=== PATIENT | male | born 1980 | race Caucasian/White ===

== ENCOUNTER 2025-04-01 10:46 | Outpatient (CLI) | payer OTHER, SELFPAY ==
[2025-04-14 10:55] VITALS: BMI 47.5
--- NOTE | 2025-04-14 10:55 | P.SLEEP_ITS ---
Sleep Study - Home Unattended Date of Study: 04/01/25 Ordering Provider: Nadeem Alicia, Interpreting Provider: Eva Reyes, DO Home Sleep Study Type: Watch PAT Height: 1.83 m Weight: 158.757 kg Body Mass Index: 47.5 Neck Circumference (inches): [address] [place] [address] [place]: 4 Reason for Sleep Study daytime hypersomnia Sleep History The patient is a 44-year-old male who had a sleep study ordered by his primary care for evaluation of sleep apnea. The patient denies snoring loudly. He denies interruptions in breathing while asleep. He denies choking or gasping at night. He denies having trouble breathing on his back. He denies morning headaches. He denies having a dry or sore mouth/throat in the morning. He does have nocturnal heartburn. He denies nocturia. He denies having trouble falling or staying asleep. He does have difficulty returning to sleep if he wakes up throughout the night. He denies any hypnotic or sedative use. He denies feeling anxious about sleep. He does feel tired or sleepy during the day. He denies feeling tired in the morning. He denies having the urge to fall asleep during the day. He denies feeling drowsy while driving. He denies sleep paralysis, cataplexy, and hypnagogic/hypnopompic hallucinations. He denies clenching or grinding his teeth. He denies kicking or jerking his legs excessively. He denies having a restless feeling in his legs. He goes to bed at 10 p.m. every night. It takes him 15 minutes to fall asleep. He gets 6 hours of sleep on workdays and 10 hours on his days off. His sleep is somewhat restorative on his days off. He does take a planned nap in the after noon for 1-2 hours and it is restorative. He denies dream enactment behavior. He denies sleepwalking. He consumes 1-2 cups of caffeinated beverage per day. He denies tobacco and alcohol use. He denies exercising on a regular basis. Sleep Procedure The sleep study was completed using [employer] a technically adequate device with seven channels: peripheral arterial tone, actigraphy, body position, snore, respiratory movement, pulse oximetry, sleep staging, and heart rate. Prior to using the device, the patient received verbal and written instructions for its application and was provided with the help desk phone number for additional telephonic instruction with 24-hour availability of qualified personnel to answer questions. The study was scored using CMS guidelines. Sleep Architecture The total recording time is 6 hrs, 48 min. The total sleep time is 6 hrs, 3 min. Sleep latency is 20 minutes. REM latency is 94 minutes. The patient had 3 episodes of waking. Sleep architecture shows 18.3% deep sleep, 56.7% light sleep, and (as % Total Sleep Time) showed NREM (Light 56.7%; Deep 18.3%), and a 25.0% stage REM. The patient spent 74.7% of total sleep time in the supine position. Sleep efficiency was 88.97. Respiratory Analysis The overall AHI (pAHI 4%:) is 11.4. The overall AHI (pAHI 3%:) is 22.0. The central AHI is 0.0. The AHI was 13.3 in NREM and 47.4 in REM sleep. The AHI was 26.2 in Supine and 8.1 in Non-supine sleep. Percent of [place] respirations is 0.0. Oximetry Data The oxygen desaturation index (MATTHEW 4%:) is 11.4. The mean saturation is 93%, and the lowest saturation is 79%. Time spent with saturation < 88% is 3.1 minutes. Snoring Profile Snoring average intensity is 41 dB. The patient snored above 45 decibels for 8.2 minutes, 2.3% of sleep time. Cardiac Profile The average pulse rate is 79 beats per minutes. The lowest pulse rate is 63 bpm. The highest pulse rate reported is 107 bpm. Atrial fibrillation was not detected. Premature beats occur <0.1 per minute. Assessment and Plan Assessment and Plan (1) MADHAVI (obstructive sleep apnea): Code(s): G47.33 - Obstructive sleep apnea (adult) (pediatric) Status: Acute Assessment and Plan: The patient had an overall AHI of 11.4 with desaturation down to 79%. This is consistent with mild sleep apnea. Due to the patient's hypersomnia and morbid obesity, he qualifies for treatment. I recommend that the patient be prescribed AutoPAP 5-15 cm H2O, CPAP mask/filters/tubing and heated humidity. a mandibular advancement device is also acceptable treatment option. This should be used with all episodes of sleep.? Compliance should be reviewed within 31-90 days of starting therapy for usage greater than 4 hours per night greater than 70% of the nights. The patient should be asked about symptoms such as?excessive daytime sleepiness, quality of sleep, decreased nocturia, increased?mental functioning such as memory, mood, and concentration. Data The data obtained during this sleep study is adequate for interpretation. Certification This sleep study has been reviewed by a board certified sleep medicine physician.
== END 2025-04-06 10:49 | disposition home or self-care (01) ==
LOC: ANHCSM 10:53
PROVIDERS: PCP Internal Medicine; Visit Provider Internal Medicine
DX: G47.33 Obstructive sleep apnea (adult) (pediatric) (principal)
CPT/HCPCS: 95800